=== PATIENT | male | born 1980 | race African-American/Black ===

== ENCOUNTER 2017-03-20 08:59 | Day surgery (SDC) | payer OTHER ==
[~2017-03-20] VITALS: Ht 172.7 cm; Wt 101.2 kg
[~2017-03-20 08:59] MED LIST: ANTIBOTIC; DICLOFENAC POTA50 MG PO; DICLOFENAC SODI75 MG PO; SKELAXIN800 MG PO; TRIAMCINOLONE A15 GM TP
[2017-03-20 09:44] LABS: EOSINOPHIL (%) 1.2 % (0-5); EOSINOPHIL COUNT 0.2 K/uL (0-0.3); HEMATOCRIT 39.1 % (38.0-50.0); IMMATURE GRANULOCYTE COUNT 0.2 K/uL; INSTRUMENT ABS NEUTROPHIL CT 12.6 K/uL; LYMPHOCYTE COUNT 1.3 K/uL (1.0-2.8); MCH 30.8 PG (29.0-34.0); MCV 87.9 FL (86-99); MONOCYTE (%) 6.8 % (3-12); NEUTROPHIL (%) 82.1 % (45-76); NEUTROPHIL COUNT 12.6 K/uL (1.8-6.4); PLATELET COUNT 180 K/uL (156-360); RBC DIS.WIDTH-CV 13.3 % (11.8-14.6); RBC DIS.WIDTH-SD 42.8 % (39-53); RED BLOOD COUNT 4.45 M/uL (4.00-5.50); WHITE BLOOD COUNT 15.3 K/uL (4.1-10.2)
[2017-03-20 09:52] LABS: CHLORIDE 96 mEq/L (99-109); POTASSIUM 3.8 mEq/L (3.7-5.4); SODIUM 131 mEq/L (136-147)
[2017-03-20 09:54] LABS: GLUCOSE 292 mg/dL (70-99)
[2017-03-20 09:55] LABS: ANION GAP 13 MEQ/L (2-14); INTER. NORMALIZED RATIO 1.1; PROTHROMBIN TIME 11.1 (9.2-11.2); PTT 28.7 (25-32)
[2017-03-20 09:56] LABS: TOTAL BILIRUBIN 0.9 mg/dL (0.0-1.0)
[2017-03-20 09:58] LABS: ALKALINE PHOSPHATASE 120 IU/L (3-129); GFR ESTIMATE (CALCULATED) > 59 mL/min/
[2017-03-20 09:59] LABS: UREA NITROGEN (BUN) 6 mg/dL (9-23)
[2017-03-20] MEDS ORDERED: BACTRIM,SEPT1 TABLET PO (10:22)
[2017-03-20 10:36] VITALS: BP 144/94
[2017-03-20 11:00] LABS: METH RESISTANT S AUREUS PCR NEGATIVE (NEGATIVE); PROBE CHECK PASS; SPECIMEN PROCESSING CONTROL PASS
[2017-03-20] MEDS ORDERED: COLACE100 MG PO (13:28)
[2017-03-20] MEDS ORDERED: HYDROCODON-ACE1 EAC7 PO (13:28)
[2017-03-20 14:03] VITALS: BP 140/94
== END 2017-03-20 14:40 | disposition home or self-care (01) ==
LOC: SDC 08:59
PROVIDERS: Thoracic Surgery (Cardiothoracic Vascular Surgery)
DX: L02.11 Cutaneous abscess of neck (principal); F17.210 Nicotine dependence, cigarettes, uncomplicated; Z86.14 Personal history of Methicillin resistant Staphylococcus aureus infection
CPT/HCPCS: 80053; 85025; 85610; 85730; 87070; 87075; 87077; 87147; 87186; 87205; 87641; J2250; J3010; J3370

== ENCOUNTER 2017-04-03 04:51 | Emergency (ER) | payer OTHER ==
[~2017-04-03] VITALS: Ht 172.7 cm; Wt 97.2 kg
[~2017-04-03 04:51] MED LIST changes: +BACTRIM,SEPT1 TABLET PO; +COLACE100 MG PO; +HYDROCODON-ACE1 EAC7 PO
[2017-04-03 05:34] LABS: EOSINOPHIL (%) 0.5 % (0-5); EOSINOPHIL COUNT 0.1 K/uL (0-0.3); IMMATURE GRANULOCYTE (%) 1.9 % (0.0-0.7); IMMATURE GRANULOCYTE COUNT 0.3 K/uL; INSTRUMENT ABS NEUTROPHIL CT 16.3 K/uL; LYMPHOCYTE COUNT 0.5 K/uL (1.0-2.8); MCH 30.6 PG (29.0-34.0); MCHC 35.4 G/DL (30.0-36.0); MCV 86.4 FL (86-99); MEAN PLAT.VOLUME 11.4 uM^3 (9.0-12.4); MONOCYTE (%) 1.3 % (3-12); MONOCYTE COUNT 0.2 K/uL (0-0.8); NEUTROPHIL (%) 93.4 % (45-76); NEUTROPHIL COUNT 16.3 K/uL (1.8-6.4); RBC DIS.WIDTH-CV 13.1 % (11.8-14.6); RBC DIS.WIDTH-SD 40.4 % (39-53); RED BLOOD COUNT 4.28 M/uL (4.00-5.50); WHITE BLOOD COUNT 17.4 K/uL (4.1-10.2)
[2017-04-03 05:39] LABS: PLATELET COUNT 282 K/uL (156-360)
[2017-04-03 05:43] LABS: CHLORIDE 93 mEq/L (99-109); POTASSIUM 3.2 mEq/L (3.7-5.4); SODIUM 129 mEq/L (136-147)
[2017-04-03 05:46] LABS: ANION GAP 23 MEQ/L (2-14)
[2017-04-03 05:48] LABS: GFR ESTIMATE (CALCULATED) > 59 mL/min/
[2017-04-03 05:49] LABS: UREA NITROGEN (BUN) 11 mg/dL (9-23)
[2017-04-03 05:56] LABS: GLUCOSE 415 mg/dL (70-99)
[2017-04-03 06:15] LABS: BASE EXCESS -5.1 mEq/L (-3 to +3); BICARBONATE 18.4 mEq/L (22-26); COMMENTS - BLOOD GASES C+; FI02 21 %; METHEMOGLOBIN 1.7 % (0-1.5); PCO2 29 mm Hg (35-45); PO2 85 mm Hg (80-100); SITE RR; TOTAL RESP RATE 36 resp/min; pH 7.41 (7.35-7.45)
[2017-04-03 06:54] LABS: TROP-I INTERPRETATION NEGATIVE; TROPONIN-I < 0.01 ng/mL (0.0-0.30)
[2017-04-03 12:50] VITALS: BP 00/00
== END 2017-04-03 12:52 ==
LOC: EME 04:51 → ENRESERV 07:11 → CANRESERV 07:11 → ENRESERV 07:13 → CANRESERV 07:15 → ENRESERV 07:15 → EME 12:52
PROVIDERS: Emergency Medicine
PROC: 0BH17EZ Insertion of Endotracheal Airway into Trachea, Via Natural or Artificial Opening (ICD-10-PCS; principal; 2017-04-03)
PROC: 5A12012 Performance of Cardiac Output, Single, Manual (ICD-10-PCS; principal; 2017-04-03)
DX: I46.9 Cardiac arrest, cause unspecified (principal); I49.01 Ventricular fibrillation; L02.11 Cutaneous abscess of neck; E87.2 Acidosis; E11.9 Type 2 diabetes mellitus without complications; F17.200 Nicotine dependence, unspecified, uncomplicated
CPT/HCPCS: 36600; 70490; 71010; 80048; 81003; 82803; 83605; 84484; 85025; 87040; 87086; 93005; 99281; 99285; J0153; J0171; J0461; J1644; J1885; J2060; J2250; J2405; J2543; J3010; J3475; J7030; J7050